=== PATIENT | female | born 1945 | race Caucasian/White ===

== ENCOUNTER 2019-04-17 11:25 | Inpatient (IN) | payer MEDICARE, MEDICAID ==
[~2019-04-17] VITALS: Ht 160 cm; Wt 85.9 kg
[2019-04-17] MEDS ORDERED: normal saline 1000ml 1,000 ML IV ONE (11:40)
[2019-04-17] MEDS ORDERED: aspirin 325mg tablet PO ONE (11:40)
[2019-04-17] MEDS ORDERED: diltiazem 5mg/ml 5ml inj. IV ONE ×2 (11:40→12:00)
[2019-04-17] MEDS ORDERED: magnesium 2GM in 50ml NS 50 ML IV ONE (11:40)
--- NOTE | 2019-04-17 11:50 | NUR ---
Cardioversion/defib pads placed over patients chest. Monitor setting on zoll
[2019-04-17 11:51] LABS: BASOPHILS # (AUTO) 0.1 X10'3 (0-0.2); EOSINOPHILS # (AUTO) 0.2 X10'3 (0-0.9); EOSINOPHILS % (AUTO) 2.1 % (0-6); HEMATOCRIT 48.4 % (35.0-45.0); HEMOGLOBIN 16.3 g/dl (12.0-16.0); LYMPHOCYTES # (AUTO) 3.7 X10'3 (1.1-4.8); LYMPHOCYTES % (AUTO) 35.5 % (21-51); MEAN CORPUSCULAR HEMOGLOBIN 32.3 PG (27.0-31.0); MEAN CORPUSCULAR HGB CONC 33.8 g/dL (33.0-36.5); MEAN CORPUSCULAR VOLUME 95.5 FL (78-98); MEAN PLATELET VOLUME 7.7 FL (7.4-10.4); MONOCYTES % (AUTO) 9.8 % (2-12); NEUTROPHILS # (AUTO) 5.4 X10'3 (1.8-7.7); NEUTROPHILS % (AUTO) 51.6 % (42-75); PLATELET COUNT 335 X10'3 (140-440); RED BLOOD COUNT 5.07 X10'6 (4.20-5.60); RED CELL DISTRIBUTION WIDTH 13.1 % (11.5-14.5); WHITE BLOOD COUNT 10.4 X10'3 (4.5-11.0)
--- NOTE | 2019-04-17 11:54 | NUR ---
procedure consent signed and reviewed procedure with patient by Dr. Mtz
[2019-04-17] MEDS ORDERED: RISP3TAB3 PO (11:57)
[2019-04-17 12:04] LABS: ALANINE AMINOTRANSFERASE 24 U/L (12-78); ALBUMIN 3.6 G/DL (3.4-5.0); ALBUMIN/GLOBULIN RATIO 0.9 (1.1-1.5); ALKALINE PHOSPHATASE 82 IU/L (46-116); ANION GAP 11 (8-16); ASPARTATE AMINO TRANSFERASE 16 U/L (10-37); BILIRUBIN,TOTAL 0.4 MG/DL (0.1-1.0); BLOOD UREA NITROGEN 8 MG/DL (7-18); BUN/CREATININE RATIO 9.1 (6.6-38.0); CALCIUM 8.5 MG/DL (8.5-10.1); CHLORIDE 100 MMOL/L (99-107); CREATININE 0.88 MG/DL (0.40-0.90); GLUCOSE 111 MG/DL (70-104); POTASSIUM 4.1 MMOL/L (3.5-5.1); SODIUM 137 MMOL/L (135-145); TOTAL CARBON DIOXIDE 26.1 MMOL/L (24-32); TOTAL PROTEIN 7.7 G/DL (6.4-8.2); eGFR 62 ML/MIN
[2019-04-17] MEDS ORDERED: etomidate 2mg/ml inj. IV ONE (12:45)
--- NOTE | 2019-04-17 13:05 | NUR ---
Synchronized defib at [address] Mtz. Conversion of afib with rvr 144 beats/min to normal sinus rhythm at 77 beats/min.
[2019-04-17] MEDS ORDERED: diphenhydrAMINE 25mg capsule PO PRN (13:40)
[2019-04-17] MEDS ORDERED: regadenoson 0.4mg/5ml syringe IV ONE (13:40)
[2019-04-17] MEDS ORDERED: ondansetron/PF 4mg/2ml inj IV PRN (13:40)
[2019-04-17] MEDS ORDERED: potassium Cl 20 mEq SR tablet PO PRN ×2 (13:40)
[2019-04-17] MEDS ORDERED: bisacodyl 10mg suppository rectal RC PRN (13:40)
[2019-04-17] MEDS ORDERED: magnesium hydroxide 30ml (MOM) UD suspension PO PRN (13:40)
[2019-04-17] MEDS ORDERED: mag hydrox/Alum hydrox/simeth 30ml oral suspension PO PRN (13:40)
[2019-04-17] MEDS ORDERED: metoprolol tartrate 1mg/ml inj IV PRN (13:40)
[2019-04-17] MEDS ORDERED: potassium CL 10mEq/100ml bag 100 ML IV PRN ×2 (13:40)
[2019-04-17] MEDS ORDERED: aminophylline 250mg/10ml inj. IV PRN (13:40)
[2019-04-17] MEDS ORDERED: nitroGLYCERIN 0.4mg SUBLingual tab SL PRN (13:40)
[2019-04-17] MEDS ORDERED: HYDROcodone/acetaminophen 10/325mg tab PO PRN (13:40)
[2019-04-17] MEDS ORDERED: HYDROcodone/acetaminophen 5mg/325mg tablet PO PRN (13:40)
[2019-04-17] MEDS ORDERED: magnesium 4gm in 100ml NS 100 ML IV PRN (13:40)
[2019-04-17] MEDS: K and/or MAG REPLACEMENT MC SCH (13:40)
[2019-04-17] MEDS ORDERED: acetaminophen 650mg rectal suppository RC PRN (13:40)
[2019-04-17] MEDS ORDERED: enoxaparin 40mg/0.4ml syringe SUBCUT SCH (13:40)
[2019-04-17] MEDS ORDERED: magnesium 2GM in 50ml NS 50 ML IV PRN (13:40)
[2019-04-17] MEDS ORDERED: acetaminophen 325mg tablet PO PRN ×2 (13:40)
[2019-04-17] MEDS ORDERED: morphine 2 MG/ML inj. syringe IV PRN ×2 (13:40)
[2019-04-17] MEDS ORDERED: magnesium Cl slow-release 64mg tablet PO PRN (13:40)
--- NOTE | 2019-04-17 13:44 | NUR ---
Procedure rhythm strips printed from zoll and placed on chart
[2019-04-17] MEDS ORDERED: iohexol 350MG/ML 100ml bottle IV ONE (13:48)
[2019-04-17] MEDS: normal saline 1000ml 1,000 ML IV SCH ×2 (14:20→22:53)
[2019-04-17 15:00] VITALS: BP 160/66
[2019-04-17 15:27] LABS: HEMOGLOBIN A1C 5.3 % (4.5-6.2)
--- NOTE | 2019-04-17 16:00 | NUR ---
Patient in room PCU 3016. I have received report from Long MONTENEGRO and had the opportunity to ask questions and assume patient care.
[2019-04-17] MEDS: metoprolol succinate 25mg (24-HOUR) SR. Tablet PO SCH (16:02)
[2019-04-17 18:00] VITALS: BP 157/70
--- NOTE | 2019-04-17 18:00 | NUR ---
Problems reprioritized. Patient report given, questions answered & plan of care reviewed with Robert MONTENEGRO.
--- NOTE | 2019-04-17 18:00 | NUR ---
Patient in room PCU 3017W. I have received report from LAN Tripp and had the opportunity to ask questions and assume patient care. Pt is alert and oriented x 4, denies CP, dizziness, SOB, n/v, and rated pain 0/10. She is accompanied by family.
[2019-04-17] MEDS ORDERED: FLU VACC QS2019-20 36MOS UP/PF 60 MCG/0.5 ML SYRINGE IMVAC ONE (18:45)
[2019-04-17 20:00] VITALS: BP_SYST 72; BP_SYST 91; BP_SYST 93; BP_DIAS 48; BP_DIAS 57; BP_DIAS 59
[2019-04-17] MEDS: enoxaparin 30mg/0.3ml syringe SUBCUT SCH (20:00)
[2019-04-17] MEDS: enoxaparin 60mg/0.6ml syringe SUBCUT SCH (20:00)
[2019-04-17] MEDS ORDERED: temazepam 15mg capsule PO PRN (21:00)
[2019-04-17] MEDS: risperiDONE 0.5mg tablet PO SCH (21:50)
[2019-04-17 22:00] VITALS: BP 136/56
[2019-04-17] MEDS ORDERED: ipratropium/albuterol 3ml nebule NEB PRN (23:20)
[2019-04-17] MEDS ORDERED: methylPREDNISolone sod succ 125mg/2ml vial IV ONE (23:20)
[2019-04-18] VITALS (22 sets, daily range): BP systolic 75–173; BP diastolic 42–98
[2019-04-18] MEDS: levoFLOXACIN-Levaquin 500mg/D5 100 ML IV SCH ×2 (00:40→08:03)
[2019-04-18] MEDS: methylPREDNISolone sod succ 125mg/2ml vial IV SCH ×2 (02:17→08:03)
[2019-04-18] MEDS: ipratropium/albuterol 3ml nebule NEB SCH ×4 (02:54→20:53)
[2019-04-18 06:22] LABS: BASOPHILS % (AUTO) 0.5 % (0-1); EOSINOPHILS % (AUTO) 0.1 % (0-6); LYMPHOCYTES # (AUTO) 0.5 X10'3 (1.1-4.8); LYMPHOCYTES % (AUTO) 7.2 % (21-51); MEAN CORPUSCULAR HEMOGLOBIN 32.6 PG (27.0-31.0); MEAN CORPUSCULAR HGB CONC 34.1 g/dL (33.0-36.5); MEAN CORPUSCULAR VOLUME 95.5 FL (78-98); MEAN PLATELET VOLUME 8.3 FL (7.4-10.4); MONOCYTES # (AUTO) 0.1 X10'3 (0-0.9); MONOCYTES % (AUTO) 1.2 % (2-12); NEUTROPHILS # (AUTO) 6.9 X10'3 (1.8-7.7); PLATELET COUNT 276 X10'3 (140-440); RED CELL DISTRIBUTION WIDTH 13.3 % (11.5-14.5); WHITE BLOOD COUNT 7.6 X10'3 (4.5-11.0)
[2019-04-18 06:32] LABS: ANION GAP 8 (8-16); BLOOD UREA NITROGEN 9 MG/DL (7-18); CHLORIDE 107 MMOL/L (99-107); CREATININE 0.75 MG/DL (0.40-0.90); GLUCOSE 116 MG/DL (70-104); POTASSIUM 4.2 MMOL/L (3.5-5.1); SODIUM 138 MMOL/L (135-145); TOTAL CARBON DIOXIDE 22.9 MMOL/L (24-32)
[2019-04-18 06:33] LABS: ALANINE AMINOTRANSFERASE 21 U/L (12-78); ALBUMIN/GLOBULIN RATIO 0.8 (1.1-1.5); ALKALINE PHOSPHATASE 69 IU/L (46-116); ASPARTATE AMINO TRANSFERASE 17 U/L (10-37); BILIRUBIN,TOTAL 0.4 MG/DL (0.1-1.0); CALCIUM 7.8 MG/DL (8.5-10.1); CHOL/HDL RATIO 2.8 (0.00-4.99); CHOLESTEROL 140 MG/DL (0-200); HDL CHOLESTEROL 50 MG/DL (35-60); LDL CHOLESTEROL 87 MG/DL (50-100); PHOSPHORUS 2.2 MG/DL (2.3-4.5); TOTAL PROTEIN 6.7 G/DL (6.4-8.2); TRIGLYCERIDES 52 MG/DL (20-135); eGFR 75 ML/MIN
--- NOTE | 2019-04-18 06:36 | NUR ---
Problems reprioritized. Patient report given, questions answered & plan of care reviewed with LAN Remy. Patient stable at shift change
[2019-04-18] MEDS: metoprolol succinate 25mg (24-HOUR) SR. Tablet PO SCH (08:00)
[2019-04-18] MEDS: enoxaparin 60mg/0.6ml syringe SUBCUT SCH (08:04)
[2019-04-18] MEDS: enoxaparin 30mg/0.3ml syringe SUBCUT SCH (08:05)
[2019-04-18] MEDS: aspirin 81mg tablet.DR PO SCH (08:06)
[2019-04-18] MEDS: K and/or MAG REPLACEMENT MC SCH (08:07)
[2019-04-18] MEDS: normal saline 1000ml 1,000 ML IV SCH ×2 (09:39→20:30)
[2019-04-18 10:05] LABS: CLARITY,URINE CLEAR (Clear); COLOR,URINE YELLOW (Yellow); GLUCOSE, URINE NEGATIVE (Neg); KETONES,URINE 15 mg/dl (Neg); LEUKOCYTE ESTERASE ,URINE NEGATIVE (Neg); NITRITES, URINE NEGATIVE (Neg); OCCULT BLOOD,URINE SMALL (Neg); PROTEIN,URINE NEGATIVE (Neg); UROBILINOGEN,URINE 0.2 E.U/dL (0.2-1.0)
--- NOTE | 2019-04-18 10:05 | NUR ---
Page Dr. Waters: PAGER ID: [phone] MESSAGE: Arti Hamlet: Hypo Tensive after Nuc med NR converted to A-fib and BP of 75/57. 20 min later is NSR 84. Saline Bolus Started 120/80 now. . Please call [facility] [phone] ([phone] character message out of a maximum of [phone])
[2019-04-18 10:10] LABS: UA COLLECTION TYPE STRAIGHT CATH
[2019-04-18 10:12] LABS: BACTERIA,URINE NONE SEEN /HPF (Neg); MUCUS STRANDS FEW /LPF (Neg); RBC,URINE 0-2 /HPF (0-2); SQUAMOUS EPITHELIAL CELL,UR FEW /LPF (FEW); WBC,URINE 0-4 /HPF (0-4)
[2019-04-18 10:19] LABS: URINE AMPHETAMINE SCREEN NEGATIVE (Neg); URINE BARBITUATE SCREEN NEGATIVE (Neg); URINE BENZODIAZEPINES SCREEN NEGATIVE (Neg); URINE CANNABINOID SCREEN NEGATIVE (Neg); URINE COCAINE SCREEN NEGATIVE (Neg); URINE METHADONE SCREEN NEGATIVE (Neg); URINE OPIATE SCREEN POSITIVE (Neg); URINE PHENCYCLIDINE SCREEN NEGATIVE (Neg)
[2019-04-18] MEDS ORDERED: diphenhydrAMINE 50 mg/ml inj IV ONE (12:30)
[2019-04-18] MEDS ORDERED: diphenhydrAMINE 25mg capsule PO ONE (12:40)
[2019-04-18] MEDS ORDERED: fentaNYL/PF 50MCG/1 ML 2ML syringe ONE (13:35)
[2019-04-18] MEDS ORDERED: midazolam 2 mg/2 ml injection ONE (13:35)
[2019-04-18] MEDS ORDERED: iohexol 350 MG/ML 50ML vial IV ONE (13:36)
[2019-04-18] MEDS ORDERED: iohexol 350MG/ML 100ml bottle IV ONE (13:36)
[2019-04-18] MEDS ORDERED: LIDOcaine 1% (10mg/ml)w/preservative injection 20ml MDV ONE (13:37)
[2019-04-18] MEDS ORDERED: diltiazem 5mg/ml 5ml inj. IV ONE (14:21)
[2019-04-18] MEDS ORDERED: nitroGLYCERIN-Tridil 50MG/D5W 250 ML IV ONE (14:26)
[2019-04-18] MEDS: diltiazem-NS 100mg/100ml 100 ML IV SCH (15:00)
[2019-04-18] MEDS ORDERED: proCHLORperazine 10 MG/2 ml inj IV PRN (15:20)
[2019-04-18] MEDS ORDERED: OXAZEpam 15mg capsule PO PRN (15:20)
--- NOTE | 2019-04-18 16:16 | NUR ---
DR CALLES PAGED REGARDING CONTINUED HIGH BP.
[2019-04-18] MEDS ORDERED: diltiazem SR 60mg capsule (twice daily) PO ONE (16:35)
--- NOTE | 2019-04-18 18:00 | NUR ---
Patient in room MED 309. I have received report from MEGAN MONTENEGRO and had the opportunity to ask questions and assume patient care.
--- NOTE | 2019-04-18 18:00 | NUR ---
Patient in room MED 309. I have received report from Josette MONTENEGRO and had the opportunity to ask questions and assume patient care. Patient was soon transfered out with all personal belongings.
[2019-04-18] MEDS ORDERED: regadenoson 0.4mg/5ml syringe IV ONE (18:30)
[2019-04-18] MEDS: prazosin 1mg capsule PO SCH (21:06)
[2019-04-18] MEDS: risperiDONE 0.5mg tablet PO SCH (21:06)
[2019-04-19] VITALS (8 sets, daily range): BP systolic 106–164; BP diastolic 42–57
[2019-04-19] MEDS: ipratropium/albuterol 3ml nebule NEB SCH ×4 (02:46→20:08)
[2019-04-19 04:34] LABS: BASOPHILS % (AUTO) 0.2 % (0-1); EOSINOPHILS % (AUTO) 0 % (0-6); HEMATOCRIT 40.5 % (35.0-45.0); HEMOGLOBIN 13.8 g/dl (12.0-16.0); LYMPHOCYTES # (AUTO) 0.9 X10'3 (1.1-4.8); LYMPHOCYTES % (AUTO) 8.9 % (21-51); MEAN CORPUSCULAR HEMOGLOBIN 32.5 PG (27.0-31.0); MEAN CORPUSCULAR VOLUME 95.4 FL (78-98); MEAN PLATELET VOLUME 7.8 FL (7.4-10.4); MONOCYTES # (AUTO) 0.7 X10'3 (0-0.9); MONOCYTES % (AUTO) 7.2 % (2-12); NEUTROPHILS # (AUTO) 8.3 X10'3 (1.8-7.7); NEUTROPHILS % (AUTO) 83.7 % (42-75); PLATELET COUNT 246 X10'3 (140-440); RED BLOOD COUNT 4.24 X10'6 (4.20-5.60); RED CELL DISTRIBUTION WIDTH 13.3 % (11.5-14.5); WHITE BLOOD COUNT 9.9 X10'3 (4.5-11.0)
[2019-04-19 04:42] LABS: ALANINE AMINOTRANSFERASE 22 U/L (12-78); ALKALINE PHOSPHATASE 61 IU/L (46-116); ANION GAP 7 (8-16); ASPARTATE AMINO TRANSFERASE 15 U/L (10-37); BILIRUBIN,TOTAL 0.3 MG/DL (0.1-1.0); BLOOD UREA NITROGEN 14 MG/DL (7-18); BUN/CREATININE RATIO 19.2 (6.6-38.0); CHLORIDE 107 MMOL/L (99-107); CREATININE 0.73 MG/DL (0.40-0.90); GLUCOSE 144 MG/DL (70-104); MAGNESIUM 2.2 MG/DL (1.5-2.4); PHOSPHORUS 2.4 MG/DL (2.3-4.5); POTASSIUM 3.9 MMOL/L (3.5-5.1); SODIUM 138 MMOL/L (135-145); TOTAL PROTEIN 6.1 G/DL (6.4-8.2); eGFR 78 ML/MIN
--- NOTE | 2019-04-19 06:53 | NUR ---
Patient in room MED 309. I have received report from LAN Sewell and had the opportunity to ask questions and assume patient care.
[2019-04-19] MEDS: diltiazem SR 60mg capsule (twice daily) PO SCH ×2 (07:09→20:33)
[2019-04-19] MEDS: levoFLOXACIN-Levaquin 500mg/D5 100 ML IV SCH (07:45)
[2019-04-19] MEDS: aspirin 81mg tablet.DR PO SCH (07:45)
[2019-04-19] MEDS: prednisone 10mg tablet PO SCH (07:46)
[2019-04-19] MEDS: K and/or MAG REPLACEMENT MC SCH (07:52)
[2019-04-19] MEDS: prazosin 1mg capsule PO SCH ×2 (08:00→21:36)
[2019-04-19] MEDS: metoprolol succinate 25mg (24-HOUR) SR. Tablet PO SCH (10:25)
[2019-04-19] MEDS: diltiazem-NS 100mg/100ml 100 ML IV SCH (10:25)
--- NOTE | 2019-04-19 17:03 | NUR ---
PAGED VASCULAR "RE: [place]EL[place], IN 309. VEIN MAPPING NEEDED TODAY FOR PRE-CABG. THANK YOU, MICHAEL TRUJILLO [phone]"
--- NOTE | 2019-04-19 17:04 | NUR ---
PAGED RESPIRATORY "RE: [place], IN 309. ABG AND PFTS NEEDED TODAY FOR PRE-CABG. THANK YOU, MICHAEL TRUJILLO [phone]"
[2019-04-19 17:31] LABS: ABG HCO3 20.9 mmol/L (22.0-26.0); ABG OXYGEN SATURATION 92.9 % (95-98); ABG PCO2 (T) 30.6 mmHg (35.0-45.0); ABG PH (T) 7.452 (7.350-7.450); ALLEN'S TEST Positive; FCOHb 0.7 % (0.5-1.5); FLOW 2 L/min; FMetHb 0.1 % (0.3-1.12); FO2Hb 92.2 % (94-100)
[2019-04-19] MEDS ORDERED: albuterol 2.5 MG/3 ML nebule ONE (17:33)
[2019-04-19] MEDS ORDERED: albuterol 2.5 MG/3 ML nebule NEB ONE (17:35)
--- NOTE | 2019-04-19 18:00 | NUR ---
Patient in room MED 309. I have received report from LAN Jackman and had the opportunity to ask questions and assume patient care.
--- NOTE | 2019-04-19 18:33 | NUR ---
Problems reprioritized. Patient report given, questions answered & plan of care reviewed with LAN Rayn.
[2019-04-19] MEDS: lisinopril 10 MG tablet PO SCH (20:34)
[2019-04-19] MEDS: risperiDONE 0.5mg tablet PO SCH (21:36)
[2019-04-20] VITALS (8 sets, daily range): BP systolic 117–187; BP diastolic 39–76
[2019-04-20] MEDS: ipratropium/albuterol 3ml nebule NEB SCH ×4 (02:42→20:15)
[2019-04-20 04:16] LABS: BASOPHILS % (AUTO) 0.2 % (0-1); EOSINOPHILS % (AUTO) 0 % (0-6); HEMATOCRIT 38.3 % (35.0-45.0); LYMPHOCYTES # (AUTO) 1.3 X10'3 (1.1-4.8); LYMPHOCYTES % (AUTO) 14.1 % (21-51); MEAN CORPUSCULAR HEMOGLOBIN 32.6 PG (27.0-31.0); MEAN CORPUSCULAR HGB CONC 33.9 g/dL (33.0-36.5); MEAN PLATELET VOLUME 7.8 FL (7.4-10.4); MONOCYTES # (AUTO) 0.8 X10'3 (0-0.9); MONOCYTES % (AUTO) 8.2 % (2-12); NEUTROPHILS # (AUTO) 7.1 X10'3 (1.8-7.7); NEUTROPHILS % (AUTO) 77.5 % (42-75); PLATELET COUNT 250 X10'3 (140-440); RED CELL DISTRIBUTION WIDTH 13.5 % (11.5-14.5); WHITE BLOOD COUNT 9.2 X10'3 (4.5-11.0)
[2019-04-20 04:26] LABS: ALANINE AMINOTRANSFERASE 32 U/L (12-78); ALBUMIN 2.9 G/DL (3.4-5.0); ALBUMIN/GLOBULIN RATIO 0.9 (1.1-1.5); ALKALINE PHOSPHATASE 58 IU/L (46-116); ANION GAP 8 (8-16); ASPARTATE AMINO TRANSFERASE 19 U/L (10-37); BILIRUBIN,TOTAL 0.3 MG/DL (0.1-1.0); BLOOD UREA NITROGEN 16 MG/DL (7-18); BUN/CREATININE RATIO 21.6 (6.6-38.0); CALCIUM 8.1 MG/DL (8.5-10.1); CHLORIDE 107 MMOL/L (99-107); CREATININE 0.74 MG/DL (0.40-0.90); GLUCOSE 108 MG/DL (70-104); MAGNESIUM 2.1 MG/DL (1.5-2.4); PHOSPHORUS 2.1 MG/DL (2.3-4.5); POTASSIUM 3.8 MMOL/L (3.5-5.1); SODIUM 141 MMOL/L (135-145); TOTAL CARBON DIOXIDE 25.7 MMOL/L (24-32); eGFR 76 ML/MIN
--- NOTE | 2019-04-20 06:24 | NUR ---
Problems reprioritized. Patient report given, questions answered & plan of care reviewed with LAN Jackman.
--- NOTE | 2019-04-20 06:29 | NUR ---
Patient in room MED 309. I have received report from LAN Suarez and had the opportunity to ask questions and assume patient care.
[2019-04-20] MEDS: K and/or MAG REPLACEMENT MC SCH (08:00)
[2019-04-20] MEDS: levoFLOXACIN-Levaquin 500mg/D5 100 ML IV SCH (08:41)
[2019-04-20] MEDS: diltiazem SR 60mg capsule (twice daily) PO SCH ×2 (08:41→20:11)
[2019-04-20] MEDS: prazosin 1mg capsule PO SCH ×2 (08:41→22:38)
[2019-04-20] MEDS: metoprolol succinate 25mg (24-HOUR) SR. Tablet PO SCH (08:42)
[2019-04-20] MEDS: aspirin 81mg tablet.DR PO SCH (08:42)
[2019-04-20] MEDS: prednisone 10mg tablet PO SCH (08:42)
[2019-04-20] MEDS: lisinopril 10 MG tablet PO SCH (08:43)
[2019-04-20] MEDS: enoxaparin 40mg/0.4ml syringe SUBCUT SCH (08:44)
--- NOTE | 2019-04-20 18:00 | NUR ---
Patient in room MED 309. I have received report from LAN Jackman and had the opportunity to ask questions and assume patient care.
--- NOTE | 2019-04-20 18:27 | NUR ---
Problems reprioritized. Patient report given, questions answered & plan of care reviewed with LAN Suarez.
[2019-04-20] MEDS: risperiDONE 0.5mg tablet PO SCH (22:38)
[2019-04-21 02:00] VITALS: BP 164/83
[2019-04-21] MEDS: ipratropium/albuterol 3ml nebule NEB SCH ×3 (04:09→15:37)
[2019-04-21 05:12] LABS: BASOPHILS # (AUTO) 0.1 X10'3 (0-0.2); BASOPHILS % (AUTO) 0.6 % (0-1); EOSINOPHILS % (AUTO) 0.4 % (0-6); HEMATOCRIT 37.7 % (35.0-45.0); HEMOGLOBIN 12.7 g/dl (12.0-16.0); LYMPHOCYTES # (AUTO) 1.9 X10'3 (1.1-4.8); LYMPHOCYTES % (AUTO) 23.1 % (21-51); MEAN CORPUSCULAR HEMOGLOBIN 32.1 PG (27.0-31.0); MEAN CORPUSCULAR HGB CONC 33.6 g/dL (33.0-36.5); MEAN CORPUSCULAR VOLUME 95.6 FL (78-98); MEAN PLATELET VOLUME 8.3 FL (7.4-10.4); MONOCYTES # (AUTO) 0.8 X10'3 (0-0.9); MONOCYTES % (AUTO) 9.2 % (2-12); NEUTROPHILS # (AUTO) 5.5 X10'3 (1.8-7.7); NEUTROPHILS % (AUTO) 66.7 % (42-75); PLATELET COUNT 243 X10'3 (140-440); RED BLOOD COUNT 3.95 X10'6 (4.20-5.60); RED CELL DISTRIBUTION WIDTH 13.6 % (11.5-14.5); WHITE BLOOD COUNT 8.2 X10'3 (4.5-11.0)
[2019-04-21 05:43] LABS: ALANINE AMINOTRANSFERASE 40 U/L (12-78); ALBUMIN 2.8 G/DL (3.4-5.0); ALBUMIN/GLOBULIN RATIO 0.9 (1.1-1.5); ALKALINE PHOSPHATASE 59 IU/L (46-116); ANION GAP 7 (8-16); ASPARTATE AMINO TRANSFERASE 26 U/L (10-37); BILIRUBIN,TOTAL 0.3 MG/DL (0.1-1.0); BLOOD UREA NITROGEN 18 MG/DL (7-18); BUN/CREATININE RATIO 20.9 (6.6-38.0); CALCIUM 8.1 MG/DL (8.5-10.1); CHLORIDE 107 MMOL/L (99-107); CREATININE 0.86 MG/DL (0.40-0.90); GLUCOSE 88 MG/DL (70-104); MAGNESIUM 2.1 MG/DL (1.5-2.4); PHOSPHORUS 2.2 MG/DL (2.3-4.5); POTASSIUM 3.9 MMOL/L (3.5-5.1); SODIUM 139 MMOL/L (135-145); TOTAL CARBON DIOXIDE 25.5 MMOL/L (24-32); TOTAL PROTEIN 5.9 G/DL (6.4-8.2); eGFR 64 ML/MIN
[2019-04-21 06:00] VITALS: BP 170/65
--- NOTE | 2019-04-21 06:10 | NUR ---
Patient in room MED 309. I have received report from LAN Suarez and had the opportunity to ask questions and assume patient care.
--- NOTE | 2019-04-21 06:36 | NUR ---
Problems reprioritized. Patient report given, questions answered & plan of care reviewed with LAN Hodge and LAN Rock.
--- NOTE | 2019-04-21 07:36 | NUR ---
Patient in rm 309, ACCE unit, hard stick, possible CABG. Requesting evaluation for a new PIV or extended PIV. Thank you, Bernie Rock RN
[2019-04-21] MEDS: enoxaparin 40mg/0.4ml syringe SUBCUT SCH (07:39)
[2019-04-21] MEDS: diltiazem SR 60mg capsule (twice daily) PO SCH (07:39)
[2019-04-21] MEDS: metoprolol succinate 25mg (24-HOUR) SR. Tablet PO SCH (07:39)
[2019-04-21] MEDS: prednisone 10mg tablet PO SCH (07:39)
[2019-04-21] MEDS: K and/or MAG REPLACEMENT MC SCH (07:40)
[2019-04-21] MEDS: aspirin 81mg tablet.DR PO SCH (07:40)
[2019-04-21] MEDS: lisinopril 10 MG tablet PO SCH (07:40)
[2019-04-21] MEDS: prazosin 1mg capsule PO SCH (07:40)
[2019-04-21 11:00] VITALS: BP 143/45
[2019-04-21] MEDS ORDERED: levoFLOXACIN 500mg tablet PO SCH (11:00)
--- NOTE | 2019-04-21 11:46 | NUR ---
Orienteer documentation: I have reviewed and agree with interventions, assessments performed and documented by LAN Hodge. Orienteer Medication Administration: For this medication-pass time frame, medication were reviewed, dispensed, administered and documented per hospital policy by LAN Hodge.
[2019-04-21] MEDS ORDERED: clopidogrel 75mg tablet PO ONE (13:40)
[2019-04-21] MEDS ORDERED: CLOP75TA15 PO (13:45)
[2019-04-21 13:51] VITALS: BP_SYST 144; BP_SYST 145; BP_SYST 150; BP_DIAS 50; BP_DIAS 54
--- NOTE | 2019-04-21 14:06 | NUR ---
PAGER ID: [phone] MESSAGE: RADHA Duenas: pt in 309 ACCE, to be d/c per Dr. Ribera. Started the discharge process. Patient was on no home meds except Risperdone. Please review and let me know. Thank you. LAN Rock [id number]
--- NOTE | 2019-04-21 14:48 | NUR ---
Dr. Waters called back to let me know that he will renew the discharge and complete it so that we can discharge the patient.
--- NOTE | 2019-04-21 14:48 | NUR ---
PAGER ID: [phone] MESSAGE: Dr. Waters,pt in rm 309, [place], L on ACCE, patient family member here waiting with patient for discharge. Please review discharge and update meds. Patient has many new meds Rx here during stay. LNA Rock ACCE [id number]
[2019-04-21] MEDS ORDERED: CARSR60C PO (14:53)
[2019-04-21] MEDS ORDERED: LEVO500T89 PO (14:53)
[2019-04-21] MEDS ORDERED: ASPI-1071 PO (14:53)
[2019-04-21] MEDS ORDERED: METO-395 PO (14:53)
[2019-04-21] MEDS ORDERED: NITR0.4T51 SL (14:53)
[2019-04-21] MEDS ORDERED: PRAZ1CAP5 PO (14:53)
[2019-04-21] MEDS ORDERED: LISI10TA4 PO (14:53)
[2019-04-21] MEDS ORDERED: LACT1CAP26 PO (14:53)
[2019-04-21] MEDS ORDERED: PRED10TA23 PO (14:53)
[2019-04-21 15:00] VITALS: BP 127/81
--- NOTE | 2019-04-21 16:15 | NUR ---
Patient stable for discharge per MD orders. All new prescriptions faxed to [facility] pharmacy on [address] in [place], and orders given to patient. All discharge instructions reviewed and all questions answered. Provided education on medications, disease management, follow up, heart healthy diet, and warning signs/symptoms. Patient understands to call to follow up with Dr. Ribera in 2 weeks, phone number given, in addition to appointment that was already made to see Dr. Funez regarding carotid stenosis. PIVs discontinued, cannulas intact; clean, dry dressings intact. hand straightener removed. All personal belongings collected and sent with patient. Patient wheeled out of facility by hospital personnel at 1615, to be transported home by spouse.
[2019-04-21] MEDS ORDERED: lactobacillus rhamnosus 10,000 MMU CELLS/CAPSULE PO SCH (20:00)
[2019-04-23] MEDS ORDERED: predniSONE 5mg tablet PO SCH (08:00)
== END 2019-04-21 16:07 | disposition home or self-care (01) | DRG 286 ==
LOC: ER 11:26 → ED HOLD 13:58 → PCU 3S 14:30 → MED 3N 04-18 19:11
PROVIDERS: ADMIT Family Medicine; ATTEND Family Medicine
PROC: 3E02340 Introduction of Influenza Vaccine into Muscle, Percutaneous Approach (ICD-10-PCS; 2019-04-17)
PROC: B32T1ZZ Computerized Tomography (CT Scan) of Left Pulmonary Artery using Low Osmolar Contrast (ICD-10-PCS; 2019-04-17)
PROC: B3201ZZ Computerized Tomography (CT Scan) of Thoracic Aorta using Low Osmolar Contrast (ICD-10-PCS; 2019-04-17)
PROC: B32S1ZZ Computerized Tomography (CT Scan) of Right Pulmonary Artery using Low Osmolar Contrast (ICD-10-PCS; 2019-04-17)
PROC: 5A2204Z Restoration of Cardiac Rhythm, Single (ICD-10-PCS; 2019-04-17)
PROC: 4A023N7 Measurement of Cardiac Sampling and Pressure, Left Heart, Percutaneous Approach (ICD-10-PCS; principal; 2019-04-18)
PROC: B3111ZZ Fluoroscopy of Right Brachiocephalic-Subclavian Artery using Low Osmolar Contrast (ICD-10-PCS; 2019-04-18)
PROC: B41F1ZZ Fluoroscopy of Right Lower Extremity Arteries using Low Osmolar Contrast (ICD-10-PCS; 2019-04-18)
PROC: B3121ZZ Fluoroscopy of Left Subclavian Artery using Low Osmolar Contrast (ICD-10-PCS; 2019-04-18)
PROC: B4181ZZ Fluoroscopy of Bilateral Renal Arteries using Low Osmolar Contrast (ICD-10-PCS; 2019-04-18)
PROC: B2111ZZ Fluoroscopy of Multiple Coronary Arteries using Low Osmolar Contrast (ICD-10-PCS; 2019-04-18)
PROC: B2151ZZ Fluoroscopy of Left Heart using Low Osmolar Contrast (ICD-10-PCS; 2019-04-18)
PROC: 4A02XM4 Measurement of Cardiac Total Activity, External Approach (ICD-10-PCS; 2019-04-18)
PROC: 3E033HZ Introduction of Radioactive Substance into Peripheral Vein, Percutaneous Approach (ICD-10-PCS; 2019-04-18)
DX: I25.110 Atherosclerotic heart disease of native coronary artery with unstable angina pectoris (principal); I50.23 Acute on chronic systolic (congestive) heart failure; J44.1 Chronic obstructive pulmonary disease with (acute) exacerbation; I48.91 Unspecified atrial fibrillation; F32.9 Major depressive disorder, single episode, unspecified; E66.9 Obesity, unspecified; F17.210 Nicotine dependence, cigarettes, uncomplicated; F20.9 Schizophrenia, unspecified; F12.10 Cannabis abuse, uncomplicated; F41.9 Anxiety disorder, unspecified; I11.0 Hypertensive heart disease with heart failure; I65.23 Occlusion and stenosis of bilateral carotid arteries; Z79.899 Other long term (current) drug therapy; Z23 Encounter for immunization; Z68.33 Body mass index [BMI] 33.0-33.9, adult; Z88.0 Allergy status to penicillin; Z71.6 Tobacco abuse counseling; Z71.51 Drug abuse counseling and surveillance of drug abuser
CPT/HCPCS: 36415; 36600; 71045; 71275; 76937; 78452; 80053; 80061; 80305; 81001; 82803; 83036; 83735; 84100; 84443; 84484; 85018; 85025; 86885; 86900; 86901; 87081; 92960; 93005; 93017; 93306; 93458; 93880; 93970; 94640; 94760; 96365; 96375; 97112; 97116; 97161; 97530; 99152; 99153; 99291; A4620; A6258; A9500; C1760; C1769; G0378; J0280; J1200; J1644; J1650; J1956; J2001; J2250; J2785; J2930; J3010; J3475; J3490; J7030; J7512; Q0163; Q2037; Q9967

== ENCOUNTER 2019-05-08 14:09 | Inpatient (IN) | payer MEDICARE, MEDICAID ==
[2019-05-07 15:33] LABS: BASOPHILS # (AUTO) 0.1 X10'3 (0-0.2); BASOPHILS % (AUTO) 1.2 % (0-1); EOSINOPHILS # (AUTO) 0.1 X10'3 (0-0.9); EOSINOPHILS % (AUTO) 1.9 % (0-6); LYMPHOCYTES # (AUTO) 1.6 X10'3 (1.1-4.8); LYMPHOCYTES % (AUTO) 22.9 % (21-51); MEAN CORPUSCULAR HEMOGLOBIN 32.5 PG (27.0-31.0); MEAN CORPUSCULAR VOLUME 95.7 FL (78-98); MEAN PLATELET VOLUME 8.4 FL (7.4-10.4); MONOCYTES # (AUTO) 0.7 X10'3 (0-0.9); MONOCYTES % (AUTO) 9.8 % (2-12); NEUTROPHILS # (AUTO) 4.5 X10'3 (1.8-7.7); NEUTROPHILS % (AUTO) 64.2 % (42-75); PRE OP HEMATOCRIT 41.1 % (35.0-45.0); PRE OP PLATELET COUNT 318 X10'3 (140-440); RED CELL DISTRIBUTION WIDTH 13.6 % (11.5-14.5)
[2019-05-07 15:43] LABS: PRE OP PROTIME 10.7 SECONDS (9.0-12.0)
[2019-05-07 15:45] LABS: ALBUMIN 2.9 G/DL (3.4-5.0); ALBUMIN/GLOBULIN RATIO 0.7 (1.1-1.5); ALKALINE PHOSPHATASE 81 IU/L (46-116); BLOOD UREA NITROGEN 12 MG/DL (7-18); BUN/CREATININE RATIO 14.6 (6.6-38.0); CALCIUM 8.3 MG/DL (8.5-10.1); CHLORIDE 101 MMOL/L (99-107); CREATININE 0.82 MG/DL (0.40-0.90); PRE OP ALT 19 U/L (30-65); PRE OP ANION GAP 7 (8-16); PRE OP AST 13 U/L (10-37); PRE OP BILIRUB, TOTAL 0.3 MG/DL (0.0-1.0); PRE OP GLUCOSE 87 MG/DL (70-104); PRE OP POTASSIUM 4.3 MMOL/L (3.4-5.1); PRE OP SODIUM 135 MMOL/L (135-145); TOTAL CARBON DIOXIDE 26.6 MMOL/L (24-32); TOTAL PROTEIN 6.8 G/DL (6.4-8.2); eGFR 68 ML/MIN
[2019-05-07 15:51] LABS: CLARITY,URINE CLOUDY (Clear); COLOR,URINE YELLOW (Yellow); GLUCOSE, URINE NEGATIVE (Neg); KETONES,URINE TRACE mg/dl (Neg); LEUKOCYTE ESTERASE ,URINE TRACE (Neg); NITRITES, URINE NEGATIVE (Neg); OCCULT BLOOD,URINE NEGATIVE (Neg); PH,URINE 5.5 (4.8-8.0); PROTEIN,URINE NEGATIVE (Neg)
[2019-05-07 16:09] LABS: UA COLLECTION TYPE CLN CATCH MIDSTREAM
[2019-05-07 16:45] LABS: SQUAMOUS EPITHELIAL CELL,UR MANY /LPF (FEW)
[2019-05-07 16:46] LABS: MUCUS STRANDS MODERATE /LPF (Neg)
[2019-05-07 16:47] LABS: CAL OXALATE CRYSTALS 3+ /HPF (NEGATIVE); WBC,URINE 0-4 /HPF (0-4)
[2019-05-07 16:48] LABS: RBC,URINE 0-2 /HPF (0-2)
[2019-05-07 16:51] LABS: BACTERIA,URINE 2+ /HPF (Neg)
[2019-05-08] VITALS (8 sets, daily range): BP systolic 129–139; BP diastolic 52–58
[~2019-05-08] VITALS: Ht 160 cm; Wt 89.2 kg
[~2019-05-08 14:09] MED LIST: ASPI-611 PO; DILT120T3 PO; DOCUMENT DATE & TIME OF BETA-BLOCKER PO ONE; LISI-643 PO; METO-384 PO; NITR0.4T48 SL; PRAZ2CAP2 PO; RISP3TAB3 PO; albuterol 2.5 MG/3 ML nebule NEB ONE; clindamycin-Cleocin 900mg/D5W 50 ML IV ONE; famotidine 20mg tablet PO ONE; nitroPRUSSIDE in NS 100 ML IV PRN; ringers solution, lacted 1,000 ML IV SCH
[2019-05-08] MEDS: phenylephrine inj 50 MG in normal saline 250ml IV soln 250 ML IV PRN ×2 (14:56→22:41)
[2019-05-08] MEDS ORDERED: LIDOcaine 1% 30ml preserv. free vial ONE (15:51)
[2019-05-08] MEDS ORDERED: heparin 10,000 units/1 ML INJ ONE (15:51)
[2019-05-08] MEDS ORDERED: ceFAZolin 1000mg inj ONE (15:51)
[2019-05-08] MEDS ORDERED: iohexol 350MG/ML 100ml bottle IV ONE (16:28)
[2019-05-08] MEDS ORDERED: sevoflurane 250ml liquid IH ONE (17:00)
[2019-05-08] MEDS ORDERED: fentaNYL/PF 50MCG/1 ML 2ML syringe ONE (17:13)
[2019-05-08] MEDS ORDERED: midazolam 2 mg/2 ml injection ONE (17:41)
[2019-05-08] MEDS ORDERED: rocuronium 10mg/ml inj IV ONE (19:19)
[2019-05-08] MEDS ORDERED: propofol inj 20 ML IV ONE (19:19)
[2019-05-08] MEDS ORDERED: heparin 1,000unit/ml 10ml vial 10 ML ONE (19:19)
[2019-05-08] MEDS ORDERED: protamine sulfate 10mg/ml inj. ONE (19:26)
[2019-05-08] MEDS ORDERED: sugammadex 200mg/2ml injection IV ONE (19:44)
[2019-05-08] MEDS ORDERED: ondansetron/PF 4mg/2ml inj IV PRN (20:05)
--- NOTE | 2019-05-08 20:30 | NUR ---
PATIENT ARRIVED FROM OR RECEIVED REPORT FROM LOKESH MONTENEGRO NO QUESTION OR CONCERNS AFTER ASSUMING CARE
[2019-05-08] MEDS: potassium CL 20mEq in D5-1/2NS 1,000 ML IV SCH (21:15)
[2019-05-08 21:49] LABS: PARTIAL THROMBOPLASTIN TIME 30 SECONDS (22-32)
--- NOTE | 2019-05-08 22:29 | NUR ---
patient in bed appears to be resting comfortably at bedside watching television rr even un labored no observable s/s of acute stress at this time, will continue to monitor
[2019-05-09] VITALS (21 sets, daily range): BP systolic 103–158; BP diastolic 32–84
--- NOTE | 2019-05-09 00:47 | NUR ---
PATIENT IS IN BED EYES CLOSED COVERS ON RR EVEN UN LABORED NO OBSERVABLE S/S OF ACUTE STRESS WILL CONTINUE TO MONITOR
--- NOTE | 2019-05-09 02:45 | NUR ---
patient in bed eyes closed rr even un labored no observable s/s of acute stress at this time will continue to monitor
[2019-05-09 03:14] LABS: BASOPHILS # (AUTO) 0.1 X10'3 (0-0.2); BASOPHILS % (AUTO) 1.1 % (0-1); EOSINOPHILS # (AUTO) 0.1 X10'3 (0-0.9); EOSINOPHILS % (AUTO) 0.9 % (0-6); HEMATOCRIT 36.3 % (35.0-45.0); HEMOGLOBIN 12.5 g/dl (12.0-16.0); LYMPHOCYTES # (AUTO) 0.8 X10'3 (1.1-4.8); LYMPHOCYTES % (AUTO) 9.1 % (21-51); MEAN CORPUSCULAR HEMOGLOBIN 32.7 PG (27.0-31.0); MEAN CORPUSCULAR HGB CONC 34.5 g/dL (33.0-36.5); MEAN CORPUSCULAR VOLUME 94.7 FL (78-98); MEAN PLATELET VOLUME 7.9 FL (7.4-10.4); MONOCYTES # (AUTO) 0.6 X10'3 (0-0.9); MONOCYTES % (AUTO) 7.2 % (2-12); NEUTROPHILS # (AUTO) 7.1 X10'3 (1.8-7.7); NEUTROPHILS % (AUTO) 81.7 % (42-75); PLATELET COUNT 273 X10'3 (140-440); RED BLOOD COUNT 3.83 X10'6 (4.20-5.60); RED CELL DISTRIBUTION WIDTH 13.3 % (11.5-14.5); WHITE BLOOD COUNT 8.7 X10'3 (4.5-11.0)
[2019-05-09 03:20] LABS: ALBUMIN 2.6 G/DL (3.4-5.0); ANION GAP 6 (8-16); BLOOD UREA NITROGEN 9 MG/DL (7-18); CALCIUM 7.6 MG/DL (8.5-10.1); CHLORIDE 104 MMOL/L (99-107); CREATININE 0.69 MG/DL (0.40-0.90); GLUCOSE 140 MG/DL (70-104); POTASSIUM 4.4 MMOL/L (3.5-5.1); SODIUM 135 MMOL/L (135-145); TOTAL CARBON DIOXIDE 24.9 MMOL/L (24-32); eGFR 83 ML/MIN
[2019-05-09] MEDS: potassium CL 20mEq in D5-1/2NS 1,000 ML IV SCH ×2 (04:04→12:04)
--- NOTE | 2019-05-09 05:16 | NUR ---
patient ion bed watching television when asked about pain patient stated left shoulder aches, repositioned with pillows and patient verbalized "much better." rr even un labored no observable s/s of acute stress at this time will continue to monitor
--- NOTE | 2019-05-09 06:00 | NUR ---
Patient in room CICU 2006. I have received report from ROMY, RN and had the opportunity to ask questions and assume patient care.
--- NOTE | 2019-05-09 06:28 | NUR ---
SBAR TO VIANEY MONTENEGRO NO QUESTIONS OR CONCERNS AFTER ASSUMING CARE
[2019-05-09] MEDS: phenylephrine inj 50 MG in normal saline 250ml IV soln 250 ML IV PRN (07:28)
--- NOTE | 2019-05-09 09:17 | NUR ---
Dr. Funez visited pt at bedside, ordered SEGUNDO drain removal and Art line removal
--- NOTE | 2019-05-09 10:07 | NUR ---
Pt's sister called to advise to keep pt in hospital one more day because her spouse is very needy, and will solicit pt to take care of him
[2019-05-09] MEDS ORDERED: nitroGLYCERIN 0.4mg SUBLingual tab SL PRN (11:45)
[2019-05-09] MEDS: metoprolol succinate 25mg (24-HOUR) SR. Tablet PO SCH (11:49)
--- NOTE | 2019-05-09 11:52 | NUR ---
RN held metoprolol due to low BP, SBP should be greater than [address] Baker, current BP 103/37, 66
[2019-05-09] MEDS: aspirin 81mg tablet.DR PO SCH (12:35)
--- NOTE | 2019-05-09 14:15 | NUR ---
Pt ambulated with minimal assistance with front wheel walker for 300 feet
--- NOTE | 2019-05-09 18:00 | NUR ---
Problems reprioritized. Patient report given, questions answered & plan of care reviewed with LAN Oakley.
--- NOTE | 2019-05-09 19:15 | NUR ---
Received report from LAN Sol. Awaiting patient arrival to the unit.
--- NOTE | 2019-05-09 19:20 | NUR ---
Problems reprioritized. Patient report given, questions answered & plan of care reviewed with production pattern maker.
--- NOTE | 2019-05-09 19:30 | NUR ---
Patient arrived to the floor, placed in room 344B. Patient is awake and alert on room air, in no apparent distress. Visitor at bedside. Call light and items of frequent use within reach. Will continue to monitor.
[2019-05-09] MEDS: diltiazem SR 60mg capsule (twice daily) PO SCH (19:52)
[2019-05-09] MEDS: HYDROcodone/acetaminophen 10/325mg tab PO PRN (19:58)
[2019-05-09] MEDS ORDERED: risperiDONE 2mg tablet PO SCH (21:00)
[2019-05-09] MEDS ORDERED: prazosin 1mg capsule PO SCH (21:00)
[2019-05-10] VITALS: BP 152/53
[2019-05-10 04:43] LABS: BASOPHILS % (AUTO) 0.5 % (0-1); EOSINOPHILS # (AUTO) 0.3 X10'3 (0-0.9); EOSINOPHILS % (AUTO) 4.9 % (0-6); HEMATOCRIT 33.4 % (35.0-45.0); HEMOGLOBIN 11.5 g/dl (12.0-16.0); LYMPHOCYTES # (AUTO) 1.8 X10'3 (1.1-4.8); LYMPHOCYTES % (AUTO) 26.6 % (21-51); MEAN CORPUSCULAR HEMOGLOBIN 32.7 PG (27.0-31.0); MEAN CORPUSCULAR HGB CONC 34.3 g/dL (33.0-36.5); MEAN CORPUSCULAR VOLUME 95.4 FL (78-98); MEAN PLATELET VOLUME 7.9 FL (7.4-10.4); MONOCYTES # (AUTO) 0.8 X10'3 (0-0.9); MONOCYTES % (AUTO) 12.5 % (2-12); NEUTROPHILS # (AUTO) 3.7 X10'3 (1.8-7.7); NEUTROPHILS % (AUTO) 55.5 % (42-75); PLATELET COUNT 209 X10'3 (140-440); RED BLOOD COUNT 3.51 X10'6 (4.20-5.60); WHITE BLOOD COUNT 6.6 X10'3 (4.5-11.0)
[2019-05-10 04:51] LABS: ALBUMIN 2.4 G/DL (3.4-5.0); ANION GAP 6 (8-16); BLOOD UREA NITROGEN 5 MG/DL (7-18); BUN/CREATININE RATIO 7.4 (6.6-38.0); CALCIUM 7.9 MG/DL (8.5-10.1); CHLORIDE 102 MMOL/L (99-107); CREATININE 0.68 MG/DL (0.40-0.90); GLUCOSE 99 MG/DL (70-104); POTASSIUM 4.2 MMOL/L (3.5-5.1); SODIUM 134 MMOL/L (135-145); TOTAL CARBON DIOXIDE 25.8 MMOL/L (24-32); eGFR 84 ML/MIN
[2019-05-10] MEDS: potassium CL 20mEq in D5-1/2NS 1,000 ML IV SCH (05:42)
--- NOTE | 2019-05-10 06:10 | NUR ---
Patient in room LIVAN 344. I have received report from LAN Jules and had the opportunity to ask questions and assume patient care.
--- NOTE | 2019-05-10 06:17 | NUR ---
Problems reprioritized. Patient report given, questions answered & plan of care reviewed with LAN Liang.
[2019-05-10 06:30] VITALS: BP 98/64
[2019-05-10] MEDS: diltiazem SR 60mg capsule (twice daily) PO SCH (07:11)
[2019-05-10] MEDS: metoprolol succinate 25mg (24-HOUR) SR. Tablet PO SCH (07:11)
[2019-05-10] MEDS: aspirin 81mg tablet.DR PO SCH (07:36)
--- NOTE | 2019-05-10 07:50 | NUR ---
Pt arrived to room 348 from ED Addendum: 05/10/19 at 0813 by Azul Clarke RN mani Salcedo pt
[2019-05-10 11:00] VITALS: BP 159/58
[2019-05-10] MEDS: HYDROcodone/acetaminophen 10/325mg tab PO PRN (16:28)
--- NOTE | 2019-05-10 18:00 | NUR ---
DC inst provided to pt & family member. IV DC'd, tip intact. All belongings sent w/pt. WC to front lobby.
== END 2019-05-10 18:03 | disposition home or self-care (01) | DRG 39 ==
LOC: PAS IN 14:09 → EDSTATUS 16:15 → CICU 2S 19:01 → SUR 3N 05-09 19:33
PROVIDERS: ADMIT Surgery; ATTEND Surgery
PROC: 03CK0ZZ Extirpation of Matter from Right Internal Carotid Artery, Open Approach (ICD-10-PCS; 2019-05-08)
PROC: 03UM0KZ Supplement Right External Carotid Artery with Nonautologous Tissue Substitute, Open Approach (ICD-10-PCS; 2019-05-08)
PROC: 03UK0KZ Supplement Right Internal Carotid Artery with Nonautologous Tissue Substitute, Open Approach (ICD-10-PCS; 2019-05-08)
PROC: B3251ZZ Computerized Tomography (CT Scan) of Bilateral Common Carotid Arteries using Low Osmolar Contrast (ICD-10-PCS; 2019-05-08)
PROC: B32G1ZZ Computerized Tomography (CT Scan) of Bilateral Vertebral Arteries using Low Osmolar Contrast (ICD-10-PCS; 2019-05-08)
PROC: B3281ZZ Computerized Tomography (CT Scan) of Bilateral Internal Carotid Arteries using Low Osmolar Contrast (ICD-10-PCS; 2019-05-08)
PROC: 03CM0ZZ Extirpation of Matter from Right External Carotid Artery, Open Approach (ICD-10-PCS; principal; 2019-05-08 17:06)
DX: I65.21 Occlusion and stenosis of right carotid artery (principal); J43.9 Emphysema, unspecified; I48.91 Unspecified atrial fibrillation; I10 Essential (primary) hypertension; F32.9 Major depressive disorder, single episode, unspecified; F41.9 Anxiety disorder, unspecified
CPT/HCPCS: 36415; 70498; 71046; 80048; 80053; 81001; 82948; 85025; 85610; 85730; 86885; 86900; 86901; 87081; 94640; 94760; 95813; 95816; A4618; A6258; A7000; C1758; C1768; C1887; C9399; G0378; J0690; J1644; J2001; J2250; J2370; J2704; J2720; J3010; J3480; J3490; J7040; J7050; J7120; Q9967

== ENCOUNTER 2019-11-11 13:21 | Day surgery (SDC) | payer MEDICARE, MEDICAID ==
[~2019-11-11] VITALS: Ht 162.6 cm; Wt 89.5 kg
[2019-11-11 12:47] LABS: BLOOD UREA NITROGEN 17 MG/DL (7-18); CREATININE 1.04 MG/DL (0.40-0.90); eGFR 52 ML/MIN
[~2019-11-11 13:21] MED LIST changes: +CLOP75TA15 PO; -DILT120T3 PO; -DOCUMENT DATE & TIME OF BETA-BLOCKER PO ONE; -LISI-643 PO; +LISI10TA4 PO; +PRAZ1CAP5 PO; -PRAZ2CAP2 PO; -albuterol 2.5 MG/3 ML nebule NEB ONE; -clindamycin-Cleocin 900mg/D5W 50 ML IV ONE; -famotidine 20mg tablet PO ONE; +iohexol 350MG/ML 100ml bottle IV ONE; -nitroPRUSSIDE in NS 100 ML IV PRN; -ringers solution, lacted 1,000 ML IV SCH
[2019-11-11] MEDS ORDERED: sodium bicarbonate (8.4%) inj. 150 MEQ in dextrose 5%-water 850 ML IV SCH (14:05)
[2019-11-11 14:10] VITALS: BP 108/60
[2019-11-11] MEDS ORDERED: acetylcysteine 200 MG/ml 4ml vial ONE (14:43)
[2019-11-11] MEDS: acetylcysteine 200 MG/ml 4ml vial PO SCH ×2 (14:51→19:17)
--- NOTE | 2019-11-11 15:41 | NUR ---
security had called about patient's purse, questioned the patient, and she stated her was given the purse by security.
--- NOTE | 2019-11-11 16:15 | NUR ---
viet Howell at Dr. Funez office ok to d/c pt after hydration.
--- NOTE | 2019-11-11 19:15 | NUR ---
pt discharged in stable condition. 1l bicarb infused per md orders. piv dc'd canula intact. taken to private vehicle daughter Allison in w/c by LAN. Addendum: 11/11/19 at 1915 by Beatriz Joya RN all belongings sent home with pt
== END 2019-11-11 19:00 | disposition home or self-care (01) ==
LOC: SSTAY O 13:21 → EDSTATUS 14:00 → SSTAY O 19:00
PROVIDERS: ATTEND Surgery
DX: I65.03 Occlusion and stenosis of bilateral vertebral arteries (principal)
CPT/HCPCS: 36415; 70498; 82565; 84520; Q9967

== ENCOUNTER 2020-01-20 08:54 | Day surgery (SDC) | payer MEDICARE, MEDICAID ==
[~2020-01-20] VITALS: Ht 160 cm; Wt 93.1 kg
[~2020-01-20 08:54] MED LIST changes: -iohexol 350MG/ML 100ml bottle IV ONE
[2020-01-20 09:21] VITALS: BP 99/47
[2020-01-20] MEDS ORDERED: RISP1TAB3 PO (09:29)
[2020-01-20] MEDS ORDERED: SENN-263 PO (09:29)
[2020-01-20] MEDS ORDERED: FURO-149 PO (09:29)
[2020-01-20] MEDS ORDERED: DILT120T3 PO (09:29)
[2020-01-20] MEDS ORDERED: MULT-1085 PO (09:29)
[2020-01-20] MEDS ORDERED: PRAV40TA3 PO (09:29)
[2020-01-20 11:04] VITALS: BP 139/86
== END 2020-01-20 11:12 | disposition home or self-care (01) ==
LOC: SSTAY O 08:54
PROVIDERS: ATTEND Radiology Diagnostic Radiology
DX: K11.8 Other diseases of salivary glands (principal); Z20.828 Contact with and (suspected) exposure to other viral communicable diseases; Z88.0 Allergy status to penicillin; Z79.899 Other long term (current) drug therapy
CPT/HCPCS: 10005; 10007; 36415; 87635; 88173; 88305